=== PATIENT | male | born 1995 | race Two or more races ===

== ENCOUNTER 2019-08-10 16:39 | Emergency (ER) | payer BC, MEDICAID ==
[~2019-08-10] VITALS: Ht 180.3 cm; Wt 88.5 kg
[2019-08-10 16:56] VITALS: Ht 180.3 cm; Wt 88.5 kg
[2019-08-10 19:17] VITALS: BP 166/86
== END 2019-08-10 19:17 | disposition home or self-care (01) ==
LOC: ED 16:39
DX: L02.212 Cutaneous abscess of back [any part, except buttock and flank] (principal); Z88.0 Allergy status to penicillin; Z98.890 Other specified postprocedural states
CPT/HCPCS: J2001